=== PATIENT | female | born 1970 | race Caucasian/White ===

== ENCOUNTER 2018-09-19 11:00 | Emergency (ER) | payer MEDICAID, SELFPAY ==
[2018-09-19 11:03] VITALS: BP 118/80; PULSE 88; RESP 18; TEMP 37.3; O2SAT 98
--- NOTE | 2018-09-19 11:07 | W.ED.GENAD ---
Discharge Plan Disposition Patient Disposition: HOME Condition: Stable Discharge Details Chief Complaint: RespSymp Clinical Impression: Flu-like symptoms Primary Care Provider: Flor Griffiths ED Provider: Brian Pierce Discharge Instructions Additional Instructions: Continue to drink fluids to stay hydrated Take 1000mg tylenol and 600mg ibuprofen every 6 hours for pain/fever as needed if not better by the end of the week see your primary care provider return to the emergency department if you feel significantly more ill, have difficulty breathing or persistent vomit Medical Decision Making 48 yo female who denies chronic medical problems comes in with chief complaint of not feeling well since Wednesday. She has had mild headaches, dry cough, runny nose and body aches. Denies vomit, rashes, recent travel. She has clear lung sounds, speaking in full sentencess, no rashes on exam, no meningismus. Given the patient's constellation of symptoms I suspect that she has influenza. She is outside the tx window for tamiflu. She appears well hydrated so do not feel IVF indicated. Advised continued supportive measures, f/u with pcp if not improving and return precautions. Appears well here, no fevers, has clear lungs so do not feel lab work or imaging indicated at this time Differential Diagnosis uri, influenza, viral illness, cap HPI General Mode of arrival: ambulatory. Date/Time Provider Initiated Documentation: 09/19/18 11:06. Limitations to Documentation: no limitations. Information obtained by: patient. History of Present Illness 48 year old F presents to the emergency department with the chief complaint of not feeling well, described as moderate, Patient started experiencing this day(s) (3) and it has been constant. No relieving factors improve symptom(s), No exacerbating factors reported . Patient notes cough. Patient did receive the following treatments prior to arrival, NSAID Related Data Allergies Allergy/AdvReac Type Severity Reaction Status Date / Time No Known Allergies Allergy Unverified 09/19/18 11:06 General Stated Complaint: RespSymp ANGELINA: 4 Review of Systems Review of Systems All systems reviewed & are unremarkable except as noted in HPI and below ENT Denies change in voice Cardiovascular Denies chest pain and Denies dyspnea Respiratory Denies dyspnea Gastrointestinal Denies abdominal pain and Denies vomiting Genitourinary Denies dysuria Musculoskeletal Denies joint swelling Integumentary/Breasts Denies rash [facility] Social History Smoking/Tobacco Use Status: Former Tobacco Use Exam Const General: no acute distress Orientation: alert HENMT Head: normal to inspection Ears: external ears normal General nose exam: external nose normal Mouth: moist mucous membranes Eyes General: appearance normal, both eyes and all related structures Neck Neck: normal visual inspection Resp Effort & Inspection: normal respiratory effort and able to speak in complete sentences Cardio Rate: regular rate Skin General skin exam: no rashes or lesions noted Neuro General: alert and oriented x3 Extrem General: normal to inspection Psych Mental Status: mental status grossly normal Course Vital Signs Temperature 37.3 C 09/19/18 11:03 Pulse 88 09/19/18 11:03 Respiratory Rate 18 09/19/18 11:03 Blood Pressure 118/80 09/19/18 11:03 Pulse Oximetry 98 09/19/18 11:03 Temperature 37.3 C 09/19/18 11:03 Temperature Source Skin 09/19/18 11:03 Pulse 88 09/19/18 11:03 Respiratory Rate 18 09/19/18 11:03 Blood Pressure 118/80 09/19/18 11:03 Pulse Oximetry 98 09/19/18 11:03 Oxygen Delivery Method Room Air 09/19/18 11:03 Oxygen Flow Rate 0 09/19/18 11:03
--- NOTE | 2018-09-19 11:17 | ED.GENADUL_ITS ---
Discharge Plan Disposition Patient Disposition: HOME Condition: Stable Discharge Details Chief Complaint: RespSymp Clinical Impression: Flu-like symptoms Primary Care Provider: Flor Griffiths ED Provider: Brian Pierce Discharge Instructions Additional Instructions: Continue to drink fluids to stay hydrated Take 1000mg tylenol and 600mg ibuprofen every 6 hours for pain/fever as needed if not better by the end of the week see your primary care provider return to the emergency department if you feel significantly more ill, have difficulty breathing or persistent vomit Medical Decision Making 48 yo female who denies chronic medical problems comes in with chief complaint of not feeling well since Wednesday. She has had mild headaches, dry cough, runny nose and body aches. Denies vomit, rashes, recent travel. She has clear lung sounds, speaking in full sentencess, no rashes on exam, no meningismus. Given the patient's constellation of symptoms I suspect that she has influenza. She is outside the tx window for tamiflu. She appears well hydrated so do not feel IVF indicated. Advised continued supportive measures, f/u with pcp if not improving and return precautions. Appears well here, no fevers, has clear lungs so do not feel lab work or imaging indicated at this time Differential Diagnosis uri, influenza, viral illness, cap HPI General Mode of arrival: ambulatory . Date/Time Provider Initiated Documentation: 09/19/18 11:06 . Limitations to Documentation: no limitations . Information obtained by: patient . History of Present Illness 48 year old F presents to the emergency department with the chief complaint of not feeling well, described as moderate, Patient started experiencing this day(s) (3) and it has been constant. No relieving factors improve symptom(s), No exacerbating factors reported . Patient notes cough. Patient did receive the following treatments prior to arrival, NSAID Related Data Allergies Allergy/AdvReac Type Severity Reaction Status Date / Time No Known Allergies Allergy Unverified 09/19/18 11:06 General Stated Complaint: RespSymp ANGELINA: 4 Review of Systems Review of Systems All systems reviewed & are unremarkable except as noted in HPI and below ENT Denies change in voice Cardiovascular Denies chest pain and Denies dyspnea Respiratory Denies dyspnea Gastrointestinal Denies abdominal pain and Denies vomiting Genitourinary Denies dysuria Musculoskeletal Denies joint swelling Integumentary/Breasts Denies rash [facility] Social History Smoking/Tobacco Use Status: Former Tobacco Use Exam Const General: no acute distress Orientation: alert HENMT Head: normal to inspection Ears: external ears normal General nose exam: external nose normal Mouth: moist mucous membranes Eyes General: appearance normal, both eyes and all related structures Neck Neck: normal visual inspection Resp Effort & Inspection: normal respiratory effort and able to speak in complete sentences Cardio Rate: regular rate Skin General skin exam: no rashes or lesions noted Neuro General: alert and oriented x3 Extrem General: normal to inspection Psych Mental Status: mental status grossly normal Course Vital Signs Temperature 37.3 C 09/19/18 11:03 Pulse 88 09/19/18 11:03 Respiratory Rate 18 09/19/18 11:03 Blood Pressure 118/80 09/19/18 11:03 Pulse Oximetry 98 09/19/18 11:03 Temperature 37.3 C 09/19/18 11:03 Temperature Source Skin 09/19/18 11:03 Pulse 88 09/19/18 11:03 Respiratory Rate 18 09/19/18 11:03 Blood Pressure 118/80 09/19/18 11:03 Pulse Oximetry 98 09/19/18 11:03 Oxygen Delivery Method Room Air 09/19/18 11:03 Oxygen Flow Rate 0 09/19/18 11:03
== END 2018-09-19 11:25 | disposition home or self-care (01) ==
LOC: ER 11:33
PROVIDERS: Emergency Provider Emergency Medicine; PCP Nurse Practitioner Family
DX: J11.1 Influenza due to unidentified influenza virus with other respiratory manifestations (principal); Z87.891 Personal history of nicotine dependence
CPT/HCPCS: 99282

== ENCOUNTER 2019-03-20 00:50 | Outpatient (CLI) | payer BC, SELFPAY ==
--- NOTE | 2019-03-20 07:45 | DI.MAMMO_ITS ---
SYMPTOMS/DIAGNOSIS; SCREENING, Z12.39 MAMMOGRAM: Mammograms were interpreted according to the usual protocol including computer analysis with CAD system, tomosynthesis and C view imaging. Comparison with prior examinations. Breast density B. No suspicious masses or microcalcifications are seen. The nodular density in the upper outer quadrant of the right breast appears stable. The skin and axilla are unremarkable. IMPRESSION: No evidence for malignancy. Yearly mammography is recommended. Category I. MQSA ASSESSMENT OF FINDINGS: Negative. Category 1. Patient will receive a letter notifying them of these results. BI-RADS category B. There are scattered areas of fibroglandular density.
== END 2019-03-20 01:10 ==
PROVIDERS: PCP Naturopath; Visit Provider Naturopath
DX: Z12.31 Encounter for screening mammogram for malignant neoplasm of breast (principal)
CPT/HCPCS: 77063; 77067

== ENCOUNTER 2019-06-11 07:43 | Outpatient (CLI) | payer BC, SELFPAY ==
[2019-06-11 11:41] LABS: Calculated LDL 132 mg/dL; Cholesterol 215 mg/dL (50-200); Glucose 96 mg/dL (70-100); HDL Cholesterol 63 mg/dL (40-60); Triglyceride 102 mg/dL (30-150)
[2019-06-12 11:37] LABS: CEA 0.5 ng/ml
== END 2019-06-11 08:03 ==
PROVIDERS: Internal Medicine Hematology & Oncology; PCP Naturopath; Visit Provider Naturopath
DX: C18.7 Malignant neoplasm of sigmoid colon (principal); Z13.220 Encounter for screening for lipoid disorders; Z13.1 Encounter for screening for diabetes mellitus
CPT/HCPCS: 36415; 80061; 82947; 82378

== ENCOUNTER 2020-02-08 02:25 | Outpatient (CLI) | payer BC, SELFPAY ==
[2020-02-08 07:50] LABS: Absolute Basophil Count 0.03 k/cumm (0.0-0.2); Absolute Eosinophil Count 0.51 k/cumm (0.0-0.7); Absolute Monocyte Count 0.35 k/cumm (0.11-0.7); Absolute Neutrophil Count 2.28 k/cumm (1.2-6.7); Basophils % 0.7; Eosinophils % 11.2; HCT 38.8 % (36.0-46.0); HGB 12.9 g/dL (12.0-15.5); Lymphocytes % 30.6; Mean Corp. HGB Concentration 33.2 g/dL (32.0-36.0); Mean Corpuscular Hemoglobin 31.7 pg (27.0-33.0); Mean Corpuscular Volume 95.3 fL (80-95); Mean Platelet Volume 11.2 fL (8.0-11.0); Monocytes % 7.7; Neutrophils % 49.8; Platelet Count 196 x1000/uL (130-400); RBC 4.07 m/cumm (4.00-5.20); RBC Distribution Width 12.9 % (11.7-14.6); White Blood Cell Count 4.57 k/cumm (4.4-10.8)
[2020-02-08 08:03] LABS: Hemoglobin A1C 5.5 % (3.8-5.6)
[2020-02-08 08:36] LABS: Iron 119 ug/dL (50-170)
[2020-02-08 08:52] LABS: ALT 27 U/L (14-59); AST 20 U/L (15-37); Albumin 3.8 g/dL (3.4-5.0); Alkaline Phosphatase 89 U/L (46-116); Anion Gap 8.8 mmol/L (3-11); BUN 22 mg/dL (7-18); Bilirubin, Total 1.3 mg/dL (0.2-1.0); CO2 27.2 mmol/L (21.0-32.0); CREATININE 0.93 mg/dL (0.55-1.02); Calcium 9.3 mg/dL (8.5-10.1); Chloride 108 mmol/L (98-107); Ferritin 64 ng/mL (8-252); Glucose 102 mg/dL (74-106); Potassium 4.1 mmol/L (3.5-5.1); Sodium 144 mmol/L (136-145); Total Protein 7.4 g/dL (6.4-8.2)
[2020-02-08 08:58] LABS: Vitamin D 25 Total 38.3 ng/ml (30-100)
[2020-02-08 14:04] LABS: FREE T4 0.97 ng/dL (0.76-1.46)
[2020-02-09 18:09] LABS: Alternaria Tenuis IgE <0.35 kU/L; Aspergillus Fumigatus IgE <0.35 kU/L; Candida Albicans (Monilia),IgE <0.35 kU/L; Cladosporium IgE <0.35 kU/L; Penicillium chrysogenum IgE <0.35 kU/L
[2020-02-09 23:50] LABS: Copper, Serum 1.16 mcg/mL (0.75-1.45)
[2020-02-14 15:03] LABS: Misc Referral (MAYO) See Comments
[2020-02-14 15:04] LABS: Misc Referral (MAYO) See Comments
== END 2020-02-08 02:45 ==
PROVIDERS: PCP Naturopath; Visit Provider Naturopath
DX: D50.9 Iron deficiency anemia, unspecified (principal); E55.9 Vitamin D deficiency, unspecified; Z00.00 Encounter for general adult medical examination without abnormal findings; R53.83 Other fatigue; E07.9 Disorder of thyroid, unspecified; E01.8 Other iodine-deficiency related thyroid disorders and allied conditions; E66.3 Overweight; Z13.1 Encounter for screening for diabetes mellitus; J30.9 Allergic rhinitis, unspecified; J33.9 Nasal polyp, unspecified; J01.91 Acute recurrent sinusitis, unspecified; E60 Dietary zinc deficiency
CPT/HCPCS: 36415; 80053; 82306; 87305; 81003; 82525; 82728; 83036; 83540; 84439; 84443; 84630; 84999; 85025; 86003

== ENCOUNTER 2020-02-12 18:36 | Outpatient (REF) | payer BC, SELFPAY ==
[2020-02-12 15:15] LABS: Bilirubin Negative (Negative); Blood Negative (Negative); Clarity Cloudy (Clear); Glucose Negative (Negative); Ketones Negative (Negative); Leukocyte Esterase Negative (Negative); Nitrite Negative (Negative); Urobilinogen 0.2 EU/dL (Up TO 0.2); pH 7.5 (5-8)
[2020-02-15 22:39] LABS: Iodine, 24 hr Urine 477 mcg/24 h (75 - 851); Urine Volume 1700 mL
== END 2020-02-12 18:56 ==
LOC: LBN 18:36
PROVIDERS: PCP Naturopath; Visit Provider Naturopath
DX: E01.8 Other iodine-deficiency related thyroid disorders and allied conditions (principal); D50.9 Iron deficiency anemia, unspecified; E55.9 Vitamin D deficiency, unspecified; E66.8 Other obesity; Z13.1 Encounter for screening for diabetes mellitus; Z00.00 Encounter for general adult medical examination without abnormal findings
CPT/HCPCS: 81003; 81050; 83018

== ENCOUNTER 2020-04-09 01:34 | Outpatient (CLI) | payer BC, SELFPAY ==
--- NOTE | 2020-04-09 12:45 | DI.MAMMO_ITS ---
EXAM: MG MAMMO SCREENING CLINICAL HISTORY: SCREENING,FAMILY H/O BREAST CA TECHNIQUE: Bilateral full field digital CC and MLO mammographic images were obtained with 3D tomosyn thesis and utilizing computer aided detection (CAD). COMPARISON: Available for comparison. FINDINGS: Masses/Architectural Distortion: None seen. Microcalcifications: No suspicious pleomorphic-type are seen. Skin Thickening/Nipple Retraction: None. IMPRESSION: 1. No significant interval change with no specific features of malignancy noted. 2. Unless there is more urgent need, screening mammography is recommended, as per [employer] guidelines. BI-RADS Category 1 - Negative Breast Density - Category B - Scattered areas of fibroglandular density A negative radiographic report should not delay biopsy if a dominant or clinically suspicious mass is present. Up to ten percent of cancers are not identified on mammography. A negative report may reinforce clinical impression. Adenosis and dense breasts may obscure an underlying neoplasm. False positive reports average 6 to 10%. Patient will receive a letter notifying them of these results.
== END 2020-04-09 01:54 ==
PROVIDERS: PCP Naturopath; Visit Provider Naturopath
DX: Z12.31 Encounter for screening mammogram for malignant neoplasm of breast (principal); Z80.3 Family history of malignant neoplasm of breast; R92.2 Inconclusive mammogram
CPT/HCPCS: 77063; 77067

== ENCOUNTER 2020-07-22 04:25 | Outpatient (CLI) | payer BC, SELFPAY ==
[2020-07-30 09:36] LABS: CEA 0.6 ng/ml
== END 2020-07-22 04:45 ==
PROVIDERS: PCP Naturopath; Visit Provider Internal Medicine Hematology & Oncology
DX: C18.9 Malignant neoplasm of colon, unspecified (principal)
CPT/HCPCS: 36415; 82378

== ENCOUNTER 2020-10-29 06:59 | Emergency (ER) | payer BC, SELFPAY ==
[2020-10-29 07:11] VITALS: BP 157/81; PULSE 79; RESP 16; TEMP 36.5; O2SAT 98
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
== END 2020-10-29 07:27 | disposition home or self-care (01) ==
PROVIDERS: Emergency Provider Student in an Organized Health Care Education/Training Program; PCP Naturopath
DX: S16.1XXA Strain of muscle, fascia and tendon at neck level, initial encounter (principal); S39.012A Strain of muscle, fascia and tendon of lower back, initial encounter; V47.5XXA Car driver injured in collision with fixed or stationary object in traffic accident, initial encounter
CPT/HCPCS: 99282; 99283

== ENCOUNTER 2021-07-18 03:29 | Outpatient (CLI) | payer BC, SELFPAY ==
[2021-07-18 10:05] LABS: Calculated LDL 141 mg/dL (<100); Cholesterol 247 mg/dL (<200); Glucose 95 mg/dL (74-106); HDL Cholesterol 90 mg/dL (40-60); Triglyceride 81 mg/dL (<150)
[2021-07-18 18:13] LABS: CEA 1.1 ng/mL (See Note)
== END 2021-07-18 03:30 | disposition home or self-care (01) ==
LOC: LBO 03:29
PROVIDERS: Internal Medicine Hematology & Oncology; PCP Naturopath; Visit Provider Family Medicine
DX: C18.7 Malignant neoplasm of sigmoid colon (principal); Z00.00 Encounter for general adult medical examination without abnormal findings
CPT/HCPCS: 36415; 80061; 82947; 82378

== ENCOUNTER 2021-07-25 02:35 | Outpatient (CLI) | payer BC, SELFPAY ==
[2021-07-25 11:17] LABS: Source Nasal/Nares
[2021-07-25 14:11] LABS: COVID-19 PCR Negative (Negative)
== END 2021-07-25 02:36 | disposition home or self-care (01) ==
LOC: LBO 02:35
PROVIDERS: PCP Naturopath; Visit Provider Surgery
DX: Z20.822 Contact with and (suspected) exposure to COVID-19 (principal)
CPT/HCPCS: 87635

== ENCOUNTER 2021-10-03 01:16 | Outpatient (CLI) | payer BC, SELFPAY ==
[2021-10-03 11:39] LABS: Source Nasal/Nares
[2021-10-03 13:51] LABS: COVID-19 PCR Negative (Negative)
== END 2021-10-03 01:17 | disposition home or self-care (01) ==
LOC: LBO 01:16
PROVIDERS: PCP Family Medicine; Visit Provider Surgery
DX: Z20.822 Contact with and (suspected) exposure to COVID-19 (principal)
CPT/HCPCS: 87635

== ENCOUNTER 2021-10-06 09:17 | Day surgery (SDC) | payer BC, SELFPAY ==
--- NOTE | 2021-10-06 06:49 | W.COLOREPORT ---
Colonoscopy Report Date of procedure: 10/06/21 Pre-op diagnosis general: Colon Cancer Screening, Personal Hx of colon cancer Post-op diagnosis procedure note: same Procedure: Colonoscopy Surgeon: Abby Benson Anesthesia Type: General:No Airway (Ramya Shi CRNA) Estimated blood loss (mL): 0 Pathology: none sent Complications: None Disposition: same day Indications: The patient is here for Colonoscopy pre-op. Her last screening following a personal history of colon cancer was performed in 2018 which was unremarkable. She has no family history of colon cancer. She has not had any bowel habit changes. -Discussed colonoscopy bowel prep as well as the procedure. Discussed possible complications of the procedure to include bleeding, pain, perforation, missed small lesion/polyp, sore throat, aspiration and adverse reaction to the medications. Questions were answered to patient?s satisfaction. No guarantees were implied or given. Prep: Miralax/Dulcolax Procedure Start Time: 11:29 Procedure End Time: 11:47 Findings: There was liquid stool and formed stool from the Hepatic flexure to the rectum. Ansatamosis was wide open. No large massess or large polyps were seen, but the prep was not adequate. Procedure Description: After informed consent was obtained the patient was taken to the procedure room and placed in a left decubitous position. Monitors were applied and a time out was done. The patients name, date of , procedure, allergies to medications and metal in their body was reviewed. The patient was then sedated. Once sedated and comfortable a rectal exam was done. External exam was normal. Internal exam revealed a normal sphincter tone and no palpable masses. The scope was then introduced and retro-flexed. No internal hemorrhoids, polyps or masses were identified on retro-flexion. The scope was then advanced to the cecum without difficulty. There was liquid and solid stool from the hepatic flexure to the rectum. The ileocecal vlave and appendiceal orifice were identified. The scope was then slowly retracted back into the rectum. There were no large polyps or masses identified. The prep was unfortunately not adequate to see small polyps. The scope was removed and the patient was woken up and taken back to Same day surgery in stable condition. The patient tolerated the procedure well and there were no immediate complications. Follow up: I will have the patient get rescheduled soon. We will try chase prep (thats what she did in [place]), I will also order some Zofran and I will allow her to eat a light breakfast the day before.
--- NOTE | 2021-10-06 06:49 | W.PM.DSUDISC ---
Discharge Plan Disposition Patient Disposition: HOME Condition: Good Discharge Details Reason For Visit: Colonoscopy Attending Provider: Abby Benson Primary Care Provider: Humberto Olivas Home Meds and New Rx's Prescriptions: Continued zinc gluconate-zinc picolinate 30 mg capsule 30 mg PO DAILY RF: 0 ascorbate calcium (vitamin C) 500 mg tablet 500 mg PO DAILY RF: 0 Zyrtec 10 mg capsule 10 mg PO DAILY PRNRF: 0 prasterone (dhea) [DHEA] 25 mg capsule 5 mg PO DAILY RF: 0 azelastine 137 mcg (0.1 %) aerosol,spray 2 spray intranasal BID Qty: 30 RF: 12 cholecalciferol (vitamin D3) 25 mcg (1,000 unit) capsule 25 mcg PO DAILY RF: 0 fluticasone propionate [Flonase Allergy Relief] 50 mcg/actuation spray,suspension 1 spray intranasal DAILY 90 Days Qty: 48 RF: 4 Discharge Instructions Additional Instructions: Findings: Unfortunately there was a lot of liquid stool so I was unable to complete the colonoscopy Follow up: My office will call you to set up another colonoscopy. We will try the go-lightly prep and also give you something for nausea to help. Please call if you develop: fevers >101.5 Nausea or Vomiting Abdominal pain that is not transient Rectal bleeding that is more then a tbsp A hard abdomen and inability to pass gas DAY SURGERY UNIT POST ENDOSCOPY INSTRUCTIONS Instructions for everyone who is given Anesthesia: For your safety, please do the following for the next 24 Hours: a. Do not drive or operate dangerous equipment b. Do not drink alcohol beverages or use any recreational drugs for the first 24 hours or while taking pain medications. The medications in your body may have a reaction that can be dangerous. c. Do not make any important decisions or sign any important papers 1. Generally there are no restrictions on your activity after a day or so has gone by, but you may feel a bit fatigued for a few days. 2. After you arrive home you may have a light meal and return to a normal diet as you can tolerate it without feeling sick to your stomach. 3. After surgery, you may feel pain or discomfort. This should be only transient, but if it persists please contact your doctor. 4. If there are any questions regarding the findings of your procedure, please feel free to contact your doctor. 6. If you are unable to contact your doctor with a problem, contact the hospital at [phone]. 7. Continue all your regular medications unless directed otherwise. I understand the above instructions and have no questions. Signature of Patient or Responsible Adult Escort Date/Time Name of Responsible Adult Escort Signature of Nurse Date/Time Activity:: Activity as Tolerated Diet:: As Tolerated Discharge Orders Discharge Orders: Discharge Order (Routine); Ordered 10/06/21 Ordered By: Abby Benson
[2021-10-06 09:34] VITALS: BP 135/77; PULSE 73; RESP 16; TEMP 37.1; O2SAT 100
[2021-10-06] MEDS: Lactated Ringers 1,000 ML 80 ML IV (09:49)
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
[2021-10-06 10:50] VITALS: BMI 30.4
[2021-10-06 11:55] VITALS: BP 114/58; PULSE 72; RESP 18; TEMP 36.3; O2SAT 96
[2021-10-06 12:24] VITALS: BP 117/75; PULSE 63; RESP 16; TEMP 36.5; O2SAT 99
--- NOTE | 2021-10-06 13:20 | W.ANESPOSTOP ---
Postoperative Evaluation Date, Time and Location Date Performed: 10/06/21 Time Performed: 11:58 Patient Location: Day Surgery Unit Vital Signs Most Recent Imported Vital Signs: Most Recent Vital Signs Temp Pulse Resp BP Pulse Ox 36.5 C 63 16 117/75 99 10/06/21 12:24 10/06/21 12:24 10/06/21 12:24 10/06/21 12:24 10/06/21 12:24 Pain Score Most Recent Pain Score: Most Recent Pain Score Pain Level 0 10/06/21 12:24 Assessment Mental Status: Awake (Alert & Oriented to Patient Baseline) Airway and Respiratory Function: Patent airway with normal (patient baseline) respiratory exam Cardiovascular Function: Hemodynamically Stable Hydration Status: Adequately Hydrated Nausea & Vomiting: No Nausea or Vomiting Pain: Pt. Denies Any Pain Peripheral Nerve Block: Patient did not receive a nerve block
== END 2021-10-06 12:36 | disposition home or self-care (01) ==
LOC: SUR 09:17
PROVIDERS: PCP Family Medicine; Visit Provider Surgery
PROC: 0DJD8ZZ Inspection of Lower Intestinal Tract, Via Natural or Artificial Opening Endoscopic (ICD-10-PCS; CPT 45378; principal; 2021-10-06 11:15)
DX: Z12.11 Encounter for screening for malignant neoplasm of colon (principal); Z85.038 Personal history of other malignant neoplasm of large intestine
CPT/HCPCS: 45378; J2001; J2704

== ENCOUNTER 2021-11-10 01:17 | Outpatient (CLI) | payer BC, SELFPAY ==
[2021-11-10 12:26] LABS: Source Nasal/Nares
[2021-11-10 18:06] LABS: COVID-19 PCR Negative (Negative)
== END 2021-11-10 01:18 | disposition home or self-care (01) ==
LOC: LBO 01:17
PROVIDERS: PCP Family Medicine; Visit Provider Surgery
DX: Z20.822 Contact with and (suspected) exposure to COVID-19 (principal); Z01.818 Encounter for other preprocedural examination
CPT/HCPCS: 87635

== ENCOUNTER 2021-11-21 03:19 | Outpatient (CLI) | payer BC, SELFPAY ==
[2021-11-21 11:44] LABS: Source Nasal/Nares
[2021-11-21 14:25] LABS: COVID-19 PCR Negative (Negative)
== END 2021-11-21 03:20 | disposition home or self-care (01) ==
LOC: LBO 03:19
PROVIDERS: PCP Family Medicine; Visit Provider Surgery
DX: Z20.822 Contact with and (suspected) exposure to COVID-19 (principal)
CPT/HCPCS: 87635

== ENCOUNTER 2021-11-24 11:17 | Day surgery (SDC) | payer BC, SELFPAY ==
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
--- NOTE | 2021-11-24 07:18 | W.COLOREPORT ---
Colonoscopy Report Date of procedure: 11/24/21 Pre-op diagnosis general: Colon Cancer Screening and personal Hx of colon cancer Post-op diagnosis procedure note: same Procedure: Colonoscopy under sedation Surgeon: Abby Benson Anesthesia Type: General:No Airway Estimated blood loss (mL): 0 Pathology: none sent Complications: None Disposition: same day Indications: ?The patient is here for Colonoscopy pre-op. Her last screening following a personal history of colon cancer was performed in 2018 which was unremarkable.? She has no family history of colon cancer. She has not had any bowel habit changes. -Discussed colonoscopy bowel prep as well as the procedure. Discussed possible complications of the procedure to include bleeding, pain, perforation, missed small lesion/polyp, sore throat, aspiration and adverse reaction to the medications. Questions were answered to patient?s satisfaction. No guarantees were implied or given.? Prep: Other Procedure Start Time: 12:55 Procedure End Time: 13:10 Retraction Time: 7 minutes Findings: Normal colon No scarring around the anastamosis Procedure Description: After informed consent was obtained the patient was taken to the procedure room and placed in a left decubitous position. Monitors were applied and a time out was done. The patients name, date of , procedure, allergies to medications and metal in their body was reviewed. The patient was then sedated. Once sedated and comfortable a rectal exam was done. External exam was normal. Internal exam revealed a normal sphincter tone and no palpable masses. The scope was then introduced and retro-flexed. No internal hemorrhoids, polyps or masses were identified on retro-flexion. The scope was then advanced to the cecum without difficulty. The ileocecal vlave and appendiceal orifice were identified. The prep was good. The scope was then slowly retracted over 7 minutes back into the rectum. There were no polyps. There was mild diverticulosis noted. The anastamosis was wide open. The scope was removed and the patient was woken up and taken back to Same day surgery in stable condition. The patient tolerated the procedure well and there were no immediate complications. Follow up: The patient should follow up in 5 years unless they develop changes in bowel habits or other new gastrointestinal complaints.
--- NOTE | 2021-11-24 07:20 | W.PM.DSUDISC ---
Discharge Plan Disposition Patient Disposition: HOME Condition: Good Discharge Details Reason For Visit: Colonoscopy Attending Provider: Abby Benson Primary Care Provider: Humberto Olivas Home Meds and New Rx's Prescriptions: Continued ondansetron 4 mg tablet,disintegrating 4 mg PO Q6H PRN (Reason: nausea and vomiting) Qty: 14 0RF Rx Instructions: Take with prep for nausea zinc gluconate-zinc picolinate 30 mg capsule 30 mg PO DAILY 0RF ascorbate calcium (vitamin C) 500 mg tablet 500 mg PO DAILY 0RF Zyrtec 10 mg capsule 10 mg PO DAILY PRN0RF prasterone (dhea) [DHEA] 25 mg capsule 5 mg PO DAILY 0RF azelastine 137 mcg (0.1 %) aerosol,spray 2 spray intranasal BID Qty: 30 12RF Rx Instructions: administer into each nostril cholecalciferol (vitamin D3) 25 mcg (1,000 unit) capsule 25 mcg PO DAILY 0RF fluticasone propionate [Flonase Allergy Relief] 50 mcg/actuation spray,suspension 1 spray intranasal DAILY 90 Days Qty: 48 4RF Rx Instructions: administer into each nostril prochlorperazine maleate [Compazine] 10 mg tablet 10 mg PO Q6H PRN (Reason: nausea and vomiting) Qty: 7 0RF Label Comments: pt. reports taking an anti emetic this AM, unsure if it was this prochlorperazine or zofran zafirlukast 20 mg tablet 20 mg PO BID Qty: 60 12RF Rx Instructions: must be taken on empty stomach, at least 1 hr before or 2 hrs after a meal/food Allregy Shots Weekly 0RF Discontinued Sutab 1.479-0.188- 0.225 gram tablet See Rx Instructions PO PER PKG DIR Qty: 24 0RF Rx Instructions: PO PER PKG DIR Discharge Instructions Additional Instructions: Findings: Normal Follow up: 5 years Please call if you develop: fevers >101.5 Nausea or Vomiting Abdominal pain that is not transient Rectal bleeding that is more then a tbsp A hard abdomen and inability to pass gas DAY SURGERY UNIT POST ENDOSCOPY INSTRUCTIONS Instructions for everyone who is given Anesthesia: For your safety, please do the following for the next 24 Hours: a. Do not drive or operate dangerous equipment b. Do not drink alcohol beverages or use any recreational drugs for the first 24 hours or while taking pain medications. The medications in your body may have a reaction that can be dangerous. c. Do not make any important decisions or sign any important papers 1. Generally there are no restrictions on your activity after a day or so has gone by, but you may feel a bit fatigued for a few days. 2. After you arrive home you may have a light meal and return to a normal diet as you can tolerate it without feeling sick to your stomach. 3. After surgery, you may feel pain or discomfort. This should be only transient, but if it persists please contact your doctor. 4. If there are any questions regarding the findings of your procedure, please feel free to contact your doctor. 6. If you are unable to contact your doctor with a problem, contact the hospital at [phone]. 7. Continue all your regular medications unless directed otherwise. I understand the above instructions and have no questions. Signature of Patient or Responsible Adult Escort Date/Time Name of Responsible Adult Escort Signature of Nurse Date/Time Activity:: Activity as Tolerated Diet:: As Tolerated Discharge Orders Discharge Orders: Discharge Order (Routine); Ordered 11/24/21 Ordered By: Abby Benson DS: Diagnosis Discharge Diagnosis (1) Personal history of colon cancer: Status: Acute
[2021-11-24 11:48] VITALS: BP 142/73; PULSE 66; RESP 18; TEMP 36.3; O2SAT 99
[2021-11-24] MEDS: Lactated Ringers 1,000 ML 80 ML IV (12:15)
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
[2021-11-24 12:38] VITALS: BMI 29.7
[2021-11-24 13:14] VITALS: BP 107/67; PULSE 62; RESP 16; TEMP 36; O2SAT 96
[2021-11-24 13:50] VITALS: BP 127/79; PULSE 57; RESP 16; TEMP 36.8; O2SAT 98
--- NOTE | 2021-11-24 14:06 | W.ANESPOSTOP ---
Postoperative Evaluation Date, Time and Location Date Performed: 11/24/21 Time Performed: 14:06 Patient Location: Day Surgery Unit Vital Signs Most Recent Imported Vital Signs: Most Recent Vital Signs Temp Pulse Resp BP Pulse Ox 36.8 C 57 L 16 127/79 98 11/24/21 13:50 11/24/21 13:50 11/24/21 13:50 11/24/21 13:50 11/24/21 13:50 Pain Score Most Recent Pain Score: Most Recent Pain Score Pain Level 0 11/24/21 13:50 Assessment Mental Status: Awake (Alert & Oriented to Patient Baseline) Airway and Respiratory Function: Patent airway with normal (patient baseline) respiratory exam Cardiovascular Function: Hemodynamically Stable Hydration Status: Adequately Hydrated Nausea & Vomiting: No Nausea or Vomiting Pain: Pt. Denies Any Pain Peripheral Nerve Block: Patient did not receive a nerve block
== END 2021-11-24 14:13 | disposition home or self-care (01) ==
LOC: SUR 11:17
PROVIDERS: PCP Family Medicine; Visit Provider Surgery
PROC: 0DJD8ZZ Inspection of Lower Intestinal Tract, Via Natural or Artificial Opening Endoscopic (ICD-10-PCS; CPT 45378; principal; 2021-11-24 12:30)
DX: Z12.11 Encounter for screening for malignant neoplasm of colon (principal); Z85.038 Personal history of other malignant neoplasm of large intestine; Z98.0 Intestinal bypass and anastomosis status; K57.30 Diverticulosis of large intestine without perforation or abscess without bleeding
CPT/HCPCS: 45378

== ENCOUNTER → 2022-01-08 00:11 | Outpatient (CLI) | payer BC, SELFPAY ==
--- NOTE | 2022-01-08 08:00 | DI.MAMMO_ITS ---
Exam(s) MAMMO SCREENING EXAM: MAMMO SCREENING CLINICAL HISTORY: SCREENING, Z12.39; FAMILY H/O BREAST CA TECHNIQUE: Mammograms were interpreted according to the usual protocol including computer analysis w Obvious CAD system, tomosynthesis and C-view imaging. COMPARISON: FINDINGS: The breasts are of moderate density with fairly symmetrical distribution of fibroglandular tissue. N o dominant mass or clumped microcalcification is identified in either breast. The current examinatio n is compared with previous examinations including March 2020 and there has been no gross interval c hange in appearance in comparison prior studies. IMPRESSION: No specific evidence of malignancy at this time. Routine screening examinations are suggested at ye blanche intervals due to the family history of breast carcinoma. BI-RADS Category 1 - Negative Breast Density - Category B - Scattered areas of fibroglandular density
== END ==
PROVIDERS: PCP Family Medicine; Visit Provider Family Medicine
DX: Z12.31 Encounter for screening mammogram for malignant neoplasm of breast (principal); Z80.3 Family history of malignant neoplasm of breast
CPT/HCPCS: 77063; 77067

== ENCOUNTER → 2022-03-05 01:10 | Outpatient (CLI) | payer BC, SELFPAY ==
--- NOTE | 2022-03-05 | DI.US_ITS ---
APPROVED REPORT EXAM: Comprehensive 2D, Doppler, and color-flow Echocardiogram Patient Location: Out-Patient Home [facility] Attendant: Virgie Thapa RDCS (AE) Indications: Syncope Other Information Study Quality: Adequate Conclusion Normal left ventricular wall thickness and chamber size. Estimated ejection fraction is 60%. Wall m otion is normal Normal right ventricular size and systolic function Both atria are normal in size There is no structural or hemodynamically significant valvular disease Normal estimated right ventricular systolic pressure, 24 mmHg Wall motion Left Ventricle The left ventricle is normal size. The left ventricular systolic function is normal. The left ventric ular ejection fraction is within the normal range. Borderline concentric left ventricular hypertrophy . There is normal LV segmental wall motion. There is no ventricular septal defect visualized. LVEF is 60%. Right Ventricle The right ventricle is normal size. The right ventricular systolic function is normal. The RVSP is 24 .1mmHg. Atria The left atrium size is normal. The right atrium size is normal. The interatrial septum is intact wit h no evidence for an atrial septal defect. Aortic Valve The aortic valve is normal in structure. Aortic valve is trileaflet. There is no aortic valvular sten osis. No aortic regurgitation is present. Mitral Valve The mitral valve is normal in structure. No evidence of mitral valve stenosis. Trace mitral regurgita tion. Tricuspid Valve The tricuspid valve is normal in structure. There is no tricuspid valve stenosis. Trace tricuspid reg urgitation. Pulmonic Valve The pulmonary valve is normal in structure. There is no pulmonic valvular stenosis. There is no pulmo heather valvular regurgitation. Great Vessels The aortic root is normal in size. Ascending aorta is not well visualized. Aortic arch is normal in c aliber. IVC is normal in size and collapses >50% with inspiration. Pericardium There is no pericardial effusion. 2D Dimensions IVSD d PLAX 1.06 cm F: 0.6-1.0 LV Vol A2C d MOD 79.0 mL LVPW d PLAX 1.07 cm F: 0.6 - 1.0 LV Vol A4C d MOD 87.7 mL LVID d PLAX 4.36 cm F: 3.8 - 5.2 LA vol/ BSA A2C s A-L 21.9 mL/m2 LVDs 2.85 cm F: 2.2 - 3.5 LA vol/ BSA A4C s A-L 24.1 mL/m2 Ao Root d 2.77 cm F: 2.7 - 3.3 LA Vol/ BSA Biplane s A-L 23.1 mL/m2 RA Area A4C 12.46 cm2 LA Area A4C s MOD 16.17 cm2 RA Vol/ BSA A4C s A-L 16.4 mL/m2 LA Area A2C s MOD 15.50 cm2 LV EF Teichholz 63.7 % LV EF A4C MOD 60.0 % LVEF (Garg's) 57.14 % F: 54 - 74 LV EF A2C MOD 58.7 % LV Volume 64.93 mL F: 46 - 106 LV EF Biplane MOD 57.1 % LV Volume Index 35.67 mL/m2 F: 29 - 61 SV 47.94 mL LV Vol Biplane MOD 83.9 mL SV Index 26.26 mL/m2 FS 34.35 % M-Mode TAPSE 2.48 cm (M/F) >1.7 LV Diastology MV E' medial 0.112 (>0.07 m/s) E/A Ratio 1.0 LV E/e MED 5.60 (<14) MV E Vmax 0.63 (0.4-1.3 m/s) MV E' lateral 0.122 (>0.1 m/s) MV A Vmax 0.65 (0.4-1.3 m/s) LV E/e LAT 5.15 (<14) MV E/A Ratio 0.91 MV E/E' medial 5.60 MV E/E' lateral 5.16 Aortic Valve LVOT Area 3.84 cm2 AoV Area Vmax 3.27 cm2 LVOT Vmax 1.08 m/s AoV Area/ BSA (Vmax) 1.79 cm2/m2 LVOT Mean Jose. 0.65 m/s MACKENZIE Mean Jose. 3.03 cm2 LVOT Peak Grad 4.7 mmHg MACKENZIE Mean Jose. Index 1.66 cm2/m2 LVOT Mean Grad 2.1 mmHg LVOT VTI 0.210 m LVOT Diam s 2.20 cm AoV Vmax 1.27 m/s Velocity Ratio 0.85 AoV Mean Jose. 0.82 m/s AoV Peak Grad 6.5 mmHg LVOT SV 80.71 mL AoV Mean Grad 3.1 mmHg AoV VTI 0.239 m AoV Area VTI 3.38 cm2 AoV Area/ BSA (VTI) 1.85 cm/m2 Mitral Valve MV DT 267 (160-240 msec) MV PHT 77 msec MV Area PHT 2.85 cm2 MV VTI 0.205 m MV Area VTI 3.94 (4.0-6.0 cm2) Pulmonary Valve PV Vmax 1.22 (0.5-1.5 m/s) RVOT Peak Gr. 3.93 mmHg PV Peak Grad 6.0 mmHg RVOT Mean Gr. 1.90 mmHg PV Mean Grad 3.3 mmHg RVOT VTI 0.162 m PV VTI 0.221 m RVOT Vmax 0.99 m/s Tricuspid Valve TR Peak Grad 21.1 mmHg TR Vmax 2.30 m/s RA Pressure 3.00 mmHg RVSP (TR) 24.1 mmHg
== END ==
PROVIDERS: PCP Family Medicine; Visit Provider Family Medicine
DX: R55 Syncope and collapse (principal)
CPT/HCPCS: 93306

== ENCOUNTER 2022-07-16 03:32 | Outpatient (CLI) | payer BC, SELFPAY ==
[2022-07-16 18:12] LABS: CEA 1.3 ng/mL (See Note)
== END 2022-07-16 03:33 | disposition home or self-care (01) ==
LOC: LBO 03:32
PROVIDERS: PCP Family Medicine; Visit Provider Internal Medicine Hematology & Oncology
DX: C18.7 Malignant neoplasm of sigmoid colon (principal)
CPT/HCPCS: 36415; 82378

== ENCOUNTER → 2023-06-24 09:12 | Outpatient (CLI) | payer BC, SELFPAY ==
--- NOTE | 2023-06-24 08:30 | DI.MAMMO_ITS ---
Exam(s) MAMMO SCREENING EXAM: MAMMO SCREENING CLINICAL HISTORY: screening,Z12.39 TECHNIQUE: Mammograms were interpreted according to the usual protocol including computer analysis w [employer] CAD system, tomosynthesis and C-view imaging. COMPARISON: 2013 through 2021 FINDINGS: The breasts are composed of mainly fatty density , Breast Density category A. No suspicious masses or suspicious microcalcifications are seen. No skin thickening or abnormal axillary lymph nodes are seen. There has been no significant change from prior exams. IMPRESSION: BI-RADS Category 1, Negative mammogram Yearly screening mammography is recommended. Breast Density - Category A, fatty density. A negative radiographic report should not delay biopsy if a dominant or clinically suspicious mass is present. Up to ten percent of cancers are not identified on mammography. A negative report may reinforce clinical impression. Adenosis and dense breasts may obscure an underlying neoplasm. False positive reports average 6 to 10%. Patient will receive a letter notifying them of these results.
== END ==
PROVIDERS: PCP Nurse Practitioner; Visit Provider Nurse Practitioner
DX: Z12.31 Encounter for screening mammogram for malignant neoplasm of breast (principal)
CPT/HCPCS: 77063; 77067

== ENCOUNTER 2023-07-09 04:06 | Outpatient (CLI) | payer BC, SELFPAY ==
[2023-07-09 07:31] LABS: Abs Immature Grans 0.01 10^3/uL (0.0-0.06); Absolute Basophil Count 0.03 10^3/uL (0.0-0.2); Absolute Eosinophil Count 0.38 10^3/uL (0.0-0.7); Absolute Lymphocyte Count 1.42 10^3/uL (1.2-3.4); Absolute Monocyte Count 0.35 10^3/uL (0.1-0.8); Absolute Neutrophil Count 2.42 10^3/uL (1.2-6.7); Basophils % 0.7; Eosinophils % 8.2; HCT 39.7 % (36.0-46.0); HGB 13.4 g/dL (11.2-15.7); Immature Grans % 0.2; Lymphocytes % 30.8; MCH 31.7 pg (27.0-33.0); MCHC 33.8 % (32.0-36.0); MCV 94 fL (80-95); Monocytes % 7.6; Neutrophils % 52.5; Platelet Count 218 10^3/uL (130-400); RBC 4.23 10^6/uL (3.93-5.22); RDW 12.6 % (11.7-14.6); RDW-SD 43.3 fL; WBC 4.61 10^3/uL (4.4-10.8)
[2023-07-09 08:28] LABS: ALT 27 U/L (14-59); AST 19 U/L (15-37); Albumin 3.8 g/dL (3.4-5.0); Alkaline Phosphatase 86 U/L (46-116); Anion Gap 10.7 mmol/L (3-11); BUN 21 mg/dL (7-18); Bilirubin, Total 1.1 mg/dL (0.2-1.0); CO2 26.3 mmol/L (21.0-32.0); CREATININE 0.8 mg/dL (0.55-1.02); Calcium 9.1 mg/dL (8.5-10.1); Calculated LDL 144 mg/dL (<100); Chloride 106 mmol/L (98-107); Cholesterol 258 mg/dL (<200); Estimated GFR 86.96 (mL/min/1.73m2); Glucose 101 mg/dL (74-106); HDL Cholesterol 104 mg/dL (40-60); Potassium 4.1 mmol/L (3.5-5.1); Sodium 143 mmol/L (136-145); Total Protein 7.7 g/dL (6.4-8.2); Triglyceride 52 mg/dL (<150)
== END 2023-07-09 04:07 | disposition home or self-care (01) ==
LOC: LBO 04:07
PROVIDERS: Absent Provider Nurse Practitioner; PCP Nurse Practitioner; Referring Provider Nurse Practitioner; Visit Provider Nurse Practitioner
DX: E78.00 Pure hypercholesterolemia, unspecified (principal); Z91.09 Other allergy status, other than to drugs and biological substances
CPT/HCPCS: 36415; 80053; 80061; 85025

== ENCOUNTER 2024-09-05 01:01 | Outpatient (CLI) | payer BC, SELFPAY ==
--- NOTE | 2024-09-05 | DI.MAMMO_ITS ---
Exam(s) MAMMO SCREENING EXAM: MAMMO SCREENING CLINICAL HISTORY: Screening, encounter for general medical examination wo abnl findings, TECHNIQUE: Bilateral full field digital CC and MLO mammographic images were obtained with 3D tomosyn thesis and utilizing computer aided detection (CAD). COMPARISON: Available for comparison. FINDINGS: Masses/Architectural Distortion: No suspicious masses. No areas of architectural distortion are pres ent. Microcalcifications: No suspicious pleomorphic-type are seen. Skin Thickening/Nipple Retraction: None. IMPRESSION: 1. No significant interval change with no specific features of malignancy noted. 2. Unless there is more urgent need, screening mammography is recommended, as per [employer] guidelines. BI-RADS Category 1 - Negative Breast Density - Category B - Scattered areas of fibroglandular density Breast density category C or D implies that the patient has dense breast tissue. Dense breast tissue is very common and is not abnormal but dense breast tissue can make it harder to find cancer on a ma mmogram. Also, dense breast tissue may increase their breast cancer risk. This information about the result of the mammogram report was provided to the patient to raise their awareness. Use this report when you speak with the patient about their risks for breast cancer, which includes their family hist ory. At that time, you may recommend for more screening tests (Ultrasound or MRI) as they might be us eful based on their risk. A negative radiographic report should not delay biopsy if a dominant or clinically suspicious mass is present. Up to ten percent of cancers are not identified on mammography. A negative report may reinforce clinical impression. Adenosis and dense breasts may obscure an underlying neoplasm. False positive reports average 6 to 10%. Patient will receive a letter notifying them of these results.
== END 2024-09-05 01:21 ==
LOC: DI 01:01
PROVIDERS: Visit Provider Nurse Practitioner Family
DX: Z00.00 Encounter for general adult medical examination without abnormal findings (principal); Z12.31 Encounter for screening mammogram for malignant neoplasm of breast; R92.323 Mammographic fibroglandular density, bilateral breasts
CPT/HCPCS: 77063; 77067

== ENCOUNTER 2024-12-28 18:56 | Outpatient (REF) | payer BC, SELFPAY ==
[2024-12-28 19:17] LABS: Abs Immature Grans 0.01 10^3/uL (0.0-0.06); Absolute Basophil Count 0.05 10^3/uL (0.0-0.2); Absolute Eosinophil Count 0.36 10^3/uL (0.0-0.7); Absolute Lymphocyte Count 1.74 10^3/uL (1.2-3.4); Absolute Monocyte Count 0.41 10^3/uL (0.1-0.8); Absolute Neutrophil Count 3.05 10^3/uL (1.2-6.7); Basophils % 0.9 %; Eosinophils % 6.4 %; HCT 37.7 % (36.0-46.0); HGB 12.8 g/dL (11.2-15.7); Immature Grans % 0.2 %; MCH 31.9 pg (27.0-33.0); MCV 94 fL (80-95); MPV 10.5 fL (8.0-11.0); Monocytes % 7.3 %; Neutrophils % 54.2 %; Platelet Count 197 10^3/uL (130-400); RBC 4.01 10^6/uL (3.93-5.22); RDW 12.3 % (11.7-14.6); RDW-SD 42.8 fL; WBC 5.62 10^3/uL (4.4-10.8)
[2024-12-28 19:52] LABS: ALT 25 U/L (14-59); AST 21 U/L (15-37); Albumin 3.9 g/dL (3.4-5.0); Alkaline Phosphatase 72 U/L (46-116); Anion Gap 7.9 mmol/L (3-11); BUN 24 mg/dL (7-18); Bilirubin, Total 0.9 mg/dL (0.2-1.0); CO2 27.1 mmol/L (21.0-32.0); CREATININE 0.6 mg/dL (0.55-1.02); Calcium 9.1 mg/dL (8.5-10.1); Calculated LDL 138 mg/dL (<100); Chloride 109 mmol/L (98-107); Cholesterol 255 mg/dL (<200); Estimated GFR 105.28 (mL/min/1.73m2); Glucose 90 mg/dL (74-106); HDL Cholesterol 102 mg/dL (>or=50); Potassium 3.9 mmol/L (3.5-5.1); Sodium 144 mmol/L (136-145); Total Protein 7.3 g/dL (6.4-8.2); Triglyceride 75 mg/dL (<150); Vitamin D 25 Total 81 ng/mL (30-100)
== END 2024-12-28 18:57 | disposition home or self-care (01) ==
LOC: NCHCN 18:56
PROVIDERS: Visit Provider Nurse Practitioner Family
DX: Z00.00 Encounter for general adult medical examination without abnormal findings (principal)
CPT/HCPCS: 80053; 80061; 82306; 85025